=== PATIENT | male | born 1955 | race Caucasian/White ===

== ENCOUNTER 2017-07-30 10:41 | Emergency (ER) | payer BC ==
[2017-07-30 10:45] VITALS: BP 132/69; PULSE 57; RESP 20; TEMP 97.4
--- NOTE | 2017-07-30 11:25 | ED ---
Wound/Laceration HPI - General Chief Complaint: Wound/Laceration Stated Complaint: Arm Laceration Time Seen by Provider: 07/30/17 10:57 Source: patient, RN notes reviewed Mode of arrival: ambulatory Limitations: no limitations - History of Present Illness Initial Comments: This a 62-year-old male present emergency Department chief complaint of left arm laceration. Patient states his happened on Friday. Patient was cutting some plastic tubing states that he put a blade on it states that he cut his left arm. He states that he does take Plavix and aspirin. He states his been some mild losing no active bleeding. Patient is up-to-date on his tetanus. Patient has full range of motion of all digits with no paresthesias. - Related Data Home Medications Medication Instructions Recorded Confirmed Atorvastatin [Lipitor] 80 mg PO DAILY 07/13/14 07/30/17 Carvedilol [Coreg] 6.25 mg PO BID 07/13/14 07/30/17 Digoxin [Lanoxin] 125 mcg PO DAILY 07/13/14 07/30/17 Lisinopril [Zestril] 5 mg PO DAILY 07/13/14 07/30/17 Nitroglycerin Sl Tabs [Nitrostat] 0.4 mg SUBLINGUAL DIRECTED PRN 07/13/1401/07 Clopidogrel [Plavix] 75 mg PO DAILY 07/30/17 07/30/17 Previous Rx's Medication Instructions Recorded Cephalexin [Keflex] 500 mg PO Q6HR #28 cap 07/30/17 Allergies Allergy/AdvReac Type Severity Reaction Status Date / Time codeine AdvReac Severe Nausea & Verified 07/30/17 10:50 Vomiting Review of Systems ROS Statement: Those systems with pertinent positive or pertinent negative responses have been documented in the HPI. ROS Other: All systems not noted in ROS Statement are negative. Past Medical History Past Medical History: Coronary Artery Disease (CAD), Hyperlipidemia, Hypertension History of Any Multi-Drug Resistant Organisms: None Reported Past Surgical History: Heart Catheterization, Heart Catheterization With Stent, Pacemaker Additional Past Surgical History / Comment(s): defibrillator approx 4 yrs ago for EF 20% Past Anesthesia/Blood Transfusion Reactions: No Reported Reaction Date of Last Stent Placement:: approx 15 yrs ago Type of Cardiac Device: AICD Device Placement Date:: 2010 Past Psychological History: No Psychological Hx Reported Smoking Status: Former smoker Past Alcohol Use History: None Reported Past Drug Use History: None Reported - Past Family History Father Family Medical History: Myocardial Infarction ([place]) General Exam Limitations: no limitations General appearance: alert, in no apparent distress Respiratory exam: Present: normal lung sounds bilaterally. Absent: respiratory distress, wheezes, rales, rhonchi, stridor Cardiovascular Exam: Present: regular rate, normal rhythm, normal heart sounds. Absent: systolic murmur, diastolic murmur, rubs, gallop, clicks Extremities exam: Present: other (Left forearm there is a 3 cm laceration with no active bleeding, no purulent drainage no erythema patient has full strength and neurovascular intact left hand. And left arm) Course Vital Signs 07/30/17 10:43 Temperature 97.4 F L Pulse Rate 57 L Respiratory 20 Rate Blood Pressure 132/69 O2 Sat by Pulse 100 Oximetry Procedures - Procedures Initial comment: Patient's left arm laceration was cleaned, thoroughly dried, Steri-Strips applied. Medical Decision Making - Medical Decision Making 62-year-old male presented for left arm laceration. Patient's laceration is over 40s hours old. This was cleaned thoroughly, Steri-Strips applied I did explain that sutures would not be used because of possible urinary infection. This will close by secondary closure. Patiently place in 7 days of antibiotics. Patient is to have wound recheck in 48 hours return for any concerning symptoms. Disposition Clinical Impression: Laceration of skin of left forearm Disposition: HOME SELF-CARE Condition: Stable Instructions: Laceration (ED) Additional Instructions: Please return to the Emergency Department if symptoms worsen or any other concerns. Prescriptions: Cephalexin [Keflex] 500 mg PO Q6HR #28 cap Referrals: Niko Hernandez MD [Primary Care Provider] - 1-2 days Time of Disposition: 11:24
== END 2017-07-30 11:38 | disposition home or self-care (01) ==
LOC: EC 10:41
DX: S51.812A Laceration without foreign body of left forearm, initial encounter (principal); E78.5 Hyperlipidemia, unspecified; I10 Essential (primary) hypertension; I25.10 Atherosclerotic heart disease of native coronary artery without angina pectoris; Z87.891 Personal history of nicotine dependence; Z79.02 Long term (current) use of antithrombotics/antiplatelets; Z79.82 Long term (current) use of aspirin; Z79.899 Other long term (current) drug therapy; Z88.5 Allergy status to narcotic agent; W26.0XXA Contact with knife, initial encounter; Y93.89 Activity, other specified; Y92.009 Unspecified place in unspecified non-institutional (private) residence as the place of occurrence of the external cause
CPT/HCPCS: 99282

== ENCOUNTER → 2018-01-02 | Outpatient (CLI) | payer BC ==
--- NOTE | 2018-01-02 21:27 | CT ---
EXAMINATION TYPE: CT soft tissue neck w con DATE OF EXAM: 01/02/2018 HISTORY: Right sided neck mass marked by BB. COMPARISON: NONE CT DLP: 334.1 mGycm. Automated Exposure Control for Dose Reduction was Utilized. TECHNIQUE: CT scan of the neck is performed with IV Contrast, patient injected with 100 mL of Isovue M300, axial images are obtained, coronal and sagittal reformatted images are reviewed. FINDINGS: A metallic BB is placed at level of palpable abnormality right neck axial image 54. In the anterior a spect of the right parotid gland there is complex solid and cystic heterogeneous enhancing mass measu ring 3.7 cm transversely by 3.1 cm AP diameter X image 56 x 3.8 cm craniocaudal diameter sagittal marsha ge 33. Local mass effect is present with compression of the draining right internal jugular vein axia l image 56 noted. This mass has indistinct fat plane from the sternocleidomastoid mastoid muscle whic h is along its posterior lateral aspect. There are adjacent prominent but subcentimeter lymph nodes. Airway: No gross abnormality seen. Parotid/submandibular glands: No suspicious abnormality is seen. Carotid/Vascular Structures: There is mild calcified plaque in left carotid bulb extending into proxi mal internal carotid artery without significant stenosis. There is incidental note made of dominant l eft vertebral artery Osseous Structures: There is moderate to severe disc space narrowing with mild to moderate spurring C 5-C6 and C6-C7 levels. There is mild to moderate disc space narrowing with mild spurring C4-C5 level. Small collateral vessels posterior upper thoracic spine are present. Other: There is partial visualization of left-sided pacemaker. There is partial visualization of hypoechoic area right frontal lobe superiormost images likely area of old infarct correlate clinically axial image 92. Consider further workup if there is no such histo ry. Vasogenic edema from mass lesion is in differential. There are a few tiny mucous retention cysts or polyps in the inferior right maxillary sinus. IMPRESSION: 1. Complex cystic 3.8 cm mass at area of palpable abnormality right neck, differential includes prima ry cystic neoplasm, metastatic neoplasm, necrotic adenopathy, and infectious processes such as absces s. Clinical correlation advised. Imaging guided fine-needle aspiration for further workup can be perf ormed if desired. Attention to right frontal brain as detailed above.
== END | disposition home or self-care (01) ==
LOC: RADCTMAIN 16:45
PROVIDERS: ATTEND Internal Medicine
DX: L72.8 Other follicular cysts of the skin and subcutaneous tissue (principal); R22.1 Localized swelling, mass and lump, neck; Z88.0 Allergy status to penicillin; Z88.5 Allergy status to narcotic agent
CPT/HCPCS: 70491; Q9967

== ENCOUNTER → 2020-02-11 | Outpatient (CLI) | payer SELFPAY ==
[2020-02-11 13:57] LABS: Basophils % (A) 0 %; Eosinophils # (A) 0.2 k/uL (0-0.7); Eosinophils % (A) 2 %; HCT 39.7 % (39.0-53.0); HGB 12.8 gm/dL (13.0-17.5); Lymphocytes # (A) 1.9 k/uL (1.0-4.8); Lymphocytes % (A) 21 %; MCH 29.9 pg (25.0-35.0); MCHC 32.3 g/dL (31.0-37.0); MCV 92.6 fL (80.0-100.0); Mean Platelet Volume 8.2; Monocytes # (A) 0.5 k/uL (0-1.0); Monocytes % (A) 6 %; Neutrophils % (A) 68 %; Platelet Count 276 k/uL (150-450); RBC 4.28 m/uL (4.30-5.90); RDW 13.5 % (11.5-15.5); WBC 8.8 k/uL (3.8-10.6)
[2020-02-11 19:34] LABS: African American GFR (CKD) 82.4 (60.0-200.0); Albumin 4.5 g/dL (3.80-4.90); Albumin/Globulin Ratio 1.88 (1.60-3.17); BUN/Creat Ratio 17.27 Ratio (12.00-20.00); Calcium 9.8 mg/dL (8.7-10.3); Globulin 2.4 g/dL (1.6-3.3); LDL Cholesterol,Calculated 59.4 mg/dL (0.0-131.0); Non-African American GFR(CKD) 71.1 (60.0-200.0); Potassium 4.8 mmol/L (3.5-5.5); Total Protein 6.9 g/dL (6.2-8.2); VLDL Calculation 21.6 mg/dL (5.00-40.00)
[2020-02-11 21:06] LABS: Digoxin 0.8 ng/mL (0.8-2.0)
== END | disposition home or self-care (01) ==
LOC: LABWHC1 11:48
PROVIDERS: ATTEND Internal Medicine Cardiovascular Disease
DX: I25.10 Atherosclerotic heart disease of native coronary artery without angina pectoris (principal); R42 Dizziness and giddiness; I50.9 Heart failure, unspecified; E78.5 Hyperlipidemia, unspecified
CPT/HCPCS: 36415; 80053; 80061; 80162; 85025

== ENCOUNTER 2021-08-24 13:09 | Day surgery (SDC) | payer MEDICARE, OTHER ==
[2021-08-23 08:27] VITALS: BMI 21.4
--- NOTE | 2021-08-24 05:47 | HP ---
HISTORY AND PHYSICAL CHIEF COMPLAINT: Right pharyngeal mass. HISTORY OF PRESENT ILLNESS: This patient is a 66-year-old male who was recently seen in my office complaining of a growth in the back of his throat. He states that it has been there for approximately 6 to 8 months. He quit smoking over 30 years ago and has not been around any secondhand smoke or used any tobacco products since that time. He denies any bleeding, referred otalgia, pain, or dysphagia associated with the mass. At the time he was seen in my office, clinical examination revealed the patient had a 1.5 to 2 cm mass which appeared to be originating from the region of the right tonsil. Indirect laryngoscopy with a headlight mirror did not reveal any significant extension into the hypopharynx. No other suspicious lesions were noted. It was recommended the patient undergo incision of this right tonsil mass along with a right tonsillectomy under general anesthesia. PAST MEDICAL HISTORY: Reveals the patient has: ALLERGY: TO CODEINE. CURRENT MEDICATIONS: Include digoxin, Atorvastatin, and baby aspirin daily. PREVIOUS SURGERIES: Include insertion of a pacemaker/defibrillator and also cataract surgery. REVIEW OF SYSTEMS: CARDIOVASCULAR is positive for congestive heart failure. METABOLIC/ENDOCRINE system is positive for hypercholesterolemia. The remainder of the review of systems is essentially unremarkable. PHYSICAL EXAMINATION: The patient is a pleasant 66-year-old male who was alert and cooperative. HEENT examination: Patient is normocephalic. Tympanic membranes are normal. Middle ear spaces are free of any fluid or infection. Pupils equal, round, and reactive to light and accommodation. Extraocular movements within normal limits. Intranasal examination reveals moderate septal deviation with compensatory hypertrophy of the inferior turbinates. Examination of the oropharynx reveals 1.5 to 2 cm mass originating in the substance of the right tonsil. Palpation of the neck, cranial nerves 2 through 12 and remainder of the head and neck exam is essentially unremarkable and within normal limits. CHEST/CARDIOVASCULAR: Both lung irwin are clear to percussion and auscultation. The patient is in regular sinus rhythm. S1 and S2 are present without evidence of any murmurs S3s or S4s. Peripheral pulses are bilaterally symmetrical and within normal limits. ABDOMEN: There is no evidence any masses, megaly or tenderness. Abdomen: Soft. SKIN is unremarkable. MUSCULOSKELETAL/NEUROLOGICAL all within normal limits. RECTAL EXAM: The rectal exam is deferred at this time because the patient has this done on a regular basis at his family physician's office. The remainder of physical exam is essentially unremarkable. IMPRESSION: Right pharyngeal/tonsillar mass. PLAN: The patient is scheduled undergo excision of right tonsillar mass with a right tonsillectomy under general anesthesia in the a.m. Attention RNs in the pre-surgical area, I have ordered for this patient to receive 1000 mg of Ofirmev IV to be given once and once an intravenous line has established. I have also ordered for this patient to receive 2 grams of Ancef IV, to be given once an intravenous line has been established. If the pharmacy department sends a different pre-surgical prophylactic antibiotic to the pre-surgical area (other than Ancef), that order should be cancelled and the medication should be returned to the pharmacy department. Please make sure that the patient's account is credited appropriately. I have discussed the risks, benefits and alternative therapies for the above-mentioned procedure and for both sedation/analgesia as well as necessary blood product administration, if indicated, as they pertain to this patient. The patient has indicated his or her understanding and acceptance of the risks and procedures discussed. MMODL / IJN: [id number] /
[~2021-08-24 13:09] MED LIST: DEXAMETHASONE SOD PHOSPHATE 4 MG/ML 1 ML VIAL IV ONE; LACTATED RINGERS 1,000 ML IV SCH; MIDAZOLAM 2 MG/2 ML VIAL IV PRN; ONDANSETRON 4 MG/2 ML VIAL IVP ONE; Pre Op ABX Message 1 EACH MISC MISCELLANE ONE; fentaNYL (PF) 50 MCG/ML 2 ML AMP IV PRN
[2021-08-24] MEDS ORDERED: ACETAMINOPHEN IV (For NPO) 1,000 MG in EMPTY BAG 1 BAG IVPB ONE (14:45)
[2021-08-24] MEDS ORDERED: DEXAMETHASONE SOD PHOSPHATE 10 MG/ML 1 ML VIAL ONE (15:05)
[2021-08-24] MEDS ORDERED: PROPOFOL 10 MG/ML 20 ML VIAL IV ONE (15:05)
[2021-08-24] MEDS ORDERED: LIDOCAINE 1% INJ 10MG/ML (20 ML MDV) ONE (15:05)
[2021-08-24] MEDS ORDERED: NEOSTIGMINE 1 MG/ML 10 ML VIAL ONE (15:05)
[2021-08-24] MEDS ORDERED: MIDAZOLAM 2 MG/2 ML VIAL ONE (15:05)
[2021-08-24] MEDS ORDERED: fentaNYL (PF) 50 MCG/ML 2 ML AMP ONE (15:05)
[2021-08-24] MEDS ORDERED: SUCCINYLCHOLINE CHLORIDE 100 MG/5 ML SYR IV ONE (15:05)
[2021-08-24] MEDS ORDERED: ETOMIDATE 2 MG/ML 10 ML VIAL ONE (15:05)
[2021-08-24] MEDS ORDERED: ROCURONIUM 10 MG/ML (5 ML VIAL) IV ONE (15:05)
[2021-08-24] MEDS ORDERED: GLYCOPYRROLATE 0.2 MG/ML 2 ML VIAL ONE (15:05)
[2021-08-24] MEDS ORDERED: BUPIVACAINE (PF) 0.5% 30 ML VIAL MISCELLANE ONE ×2 (15:38→16:02)
[2021-08-24 16:34] VITALS: TEMP 97.2
[2021-08-24 17:18] VITALS: RESP 20
[2021-08-24] MEDS ORDERED: traMADol 50 MG TAB ONE (17:26)
[2021-08-24] MEDS ORDERED: ONDANSETRON 4 MG/2 ML VIAL ONE (17:26)
[2021-08-24] MEDS ORDERED: traMADol 50 MG TAB PO ONE (17:29)
[2021-08-24] MEDS ORDERED: ONDANSETRON 4 MG/2 ML VIAL IVP ONE (17:30)
[2021-08-24 18:23] VITALS: BP 100/64; PULSE 69
--- NOTE | 2021-08-26 19:52 | OP ---
OPERATIVE REPORT DATE OF SURGERY: 08/24/2021 PREOPERATIVE DIAGNOSIS: Right tonsillar mass. POSTOPERATIVE DIAGNOSIS: Right tonsillar mass, final pathology pending. ANESTHESIA: General. OPERATIVE PROCEDURE: Excision of right tonsillar mass. SURGEON: Dr. Bermudez. COMPLICATIONS: None. ESTIMATED BLOOD LOSS: Less than 75 mL. Size of mass approximately 1 x 3 cm. Operating time approximately 1 hour 15 minutes. PROCEDURE DESCRIPTION: The patient was placed on the operating table in supine position. After uneventful induction and endotracheal intubation, satisfactory general anesthesia was obtained. Next the patient was draped in the usual and customary fashion. Following this, a #3 Raji-Jian mouth gag was introduced into the oropharynx and expanded and subsequently was suspended on a Deng stand. Next a red rubber catheter was inserted into the patient's left naris and brought out through the oropharynx and clamped. Inspection by elevating the soft palate revealed that this was a very large tonsillar mass, approximately 1 x 3 cm. It appeared to be quite ragged, lobulated, and it also appeared to have a necrotic center. There was quite a bit of tonsillar debris noted within this mass. The mass was grasped with a pair of tonsillar forceps and pulled medially. Next, using the sickle knife an incision was made just lateral to the anterior pillar beginning superiorly and working down inferiorly. A pair of scissors was used to finish the incision. A similar incision was carried out posteriorly, beginning anteriorly and working inferiorly. Next, using a combination of sharp and blunt dissection with the Germán dissector and suction cautery, the mass was excised completely with some difficulty. The mass had a tendency to shred at times. There was necrotic debris noted in the center of this mass. This mass is highly suspicious for a malignancy. Next, using a pair of a tonsillectomy snares, the mass was excised subtotally. After excising the main portion of the mass, it was noted that there was some residual tissue left. This was subsequently excised using blunt and sharp dissection and also using the suction cautery. Having done this, this completely cleaned out the entire tonsillar fossa. Hemostasis was obtained by electrocautery. Approximately 15 mL of 0.5% Marcaine without epinephrine was infiltrated to provide some postoperative anesthesia. The patient was given 10 mg of Decadron to reduce postoperative swelling. At this point, the procedure was terminated. The specimen was sent to Pathology in formalin for permanent sectioning. Estimated blood loss was less than 75 mL. The patient tolerated the procedure well and was returned to the recovery room in satisfactory condition. Final pathology is pending. Again, this mass is highly suspicious for a malignancy. MMODL / IJN: [id number] /
== END 2021-08-24 18:24 | disposition home or self-care (01) ==
LOC: OR 13:09
PROVIDERS: ATTEND Otolaryngology
DX: C11.1 Malignant neoplasm of posterior wall of nasopharynx (principal); Z98.49 Cataract extraction status, unspecified eye; I50.9 Heart failure, unspecified; E78.00 Pure hypercholesterolemia, unspecified; Z95.5 Presence of coronary angioplasty implant and graft; Z95.810 Presence of automatic (implantable) cardiac defibrillator; Z95.0 Presence of cardiac pacemaker; Z79.82 Long term (current) use of aspirin; Z79.899 Other long term (current) drug therapy; Z79.1 Long term (current) use of non-steroidal anti-inflammatories (NSAID); Z88.5 Allergy status to narcotic agent
CPT/HCPCS: 88305; 88342; 88341; 42808; J2250; J1100 ×2; J2710; J2405; J2001; J3010; J0131; J0330; J2704

== ENCOUNTER → 2021-08-31 | Outpatient (CLI) | payer MEDICARE, OTHER ==
--- NOTE | 2021-08-31 12:34 | CT ---
EXAMINATION TYPE: CT soft tissue neck w con DATE OF EXAM: 08/31/2021 11:41 AM COMPARISON: CT dated 01/04/2018 HISTORY: Carcinoma of tonsils. CT DLP: 528 mGycm Automated exposure control for dose reduction was used. CONTRAST: CT scan of the neck is performed following with IV Contrast, patient injected with 80ml mL of Isovue 300. Axial images are obtained, coronal and sagittal reformatted images are reviewed. FINDINGS: The previously seen large hyperenhancing right palatine tonsil is not appreciated today with no measu rable disease or mucosal thickening identified. Unremarkable nasopharynx, remainder of the oropharynx , hypopharynx, larynx and visualized portion of the trachea and esophagus. Soft tissue lesion with marginal calcification posteriorly is seen in the right side of the upper nec k between the sternocleidomastoid muscle and right sublingual salivary gland measuring 15 x 19 mm, co rresponding to the location of the previously seen multiple cystic lesion at that location, possibly representing residual/recurrent metastatic lymph node. Small cystic area is seen laterally and inferi shereen measuring 10 mm. Other enlarged right upper cervical lymph nodes with marginal calcifications seen posteriorly deep to the sternocleidomastoid muscle (level 2 group) measuring up to 13 mm. These are suspicious for metas tatic lymph nodes, not appreciated on the previous CT scan. Other smaller more inferior right cervica l lymph nodes with calcifications are seen. No pathologically enlarged left cervical lymph nodes. Unremarkable thyroid gland. Symmetrical unremarkable parotid and submandibular salivary glands. Paten t major mediastinal vessels. Left upper chest wall pacemaker. Subcentimeter superior mediastinal lymp h nodes. Stable right intracranial frontal lobe area of encephalomalacia. Degenerative changes of the cervical spine. No aggressive bone lesion. 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 Recommend further PET scan assessment.
== END | disposition home or self-care (01) ==
LOC: RADCTMAIN 10:44
PROVIDERS: ATTEND Otolaryngology
DX: C09.9 Malignant neoplasm of tonsil, unspecified (principal); M79.9 Soft tissue disorder, unspecified
CPT/HCPCS: 82565; 84520; 70491; 36415; Q9967

== ENCOUNTER 2021-09-07 09:52 | Day surgery (SDC) | payer MEDICARE, OTHER ==
[2021-09-04 14:50] VITALS: BMI 21.4
--- NOTE | 2021-09-06 21:29 | HP ---
HISTORY AND PHYSICAL Squamous cell carcinoma of the right tonsil. HISTORY OF PRESENT ILLNESS: The patient is a 66-year-old male who recently underwent surgery for a right tonsillar mass. The total tonsil/tonsillar mass was excised and sent to Pathology. The final pathology came back invasive squamous cell carcinoma. The patient is currently scheduled to undergo chemotherapy and radiation therapy. He was brought back to surgery at this time for a triple endoscopy to evaluate for possible secondary synchronous primary lesion elsewhere in the aerodigestive tract. He will undergo a suspension microlaryngoscopy, rigid esophagoscopy and rigid bronchoscopy under general anesthesia. Past medical history reveals that he has an ALLERGY TO CODEINE. Current medications include digoxin, atorvastatin and a baby aspirin daily. Previous surgeries include insertion of a pacemaker/defibrillator and also cataract surgery. REVIEW OF SYSTEMS: Cardiovascular system is positive for congestive heart failure. Metabolic/endocrine system is positive for hypercholesterolemia. The remainder of the review of systems is essentially unremarkable. PHYSICAL EXAMINATION: This patient is a very pleasant 66-year-old male who is alert, cooperative and well oriented to time and place. HEENT examination: Patient is normocephalic. Tympanic membranes are normal. Middle ear space is free of any fluid or infection. Pupils are equal, round and reactive to light and accommodation. Intranasal examination reveals moderate to severe septal deviation with compensatory hypertrophy of inferior turbinates. Examination of oropharynx reveals the right tonsillar fossa is healing quite nicely after excision of the right tonsillar mass. Palpation of the neck reveals the patient has a palpable lymph node approximately less than 2 cm in diameter located on the right anterior cervical chain. This lymph node is nontender, mobile, nonfluctuant and well circumscribed. No other neck masses are noted at this time. The remainder of the head and neck exam, including cranial nerves 2 through 12, is all within normal limits. Chest/cardiovascular: Both lung irwin are clear to percussion and auscultation. Lung sounds are somewhat distant. The patient is in regular sinus rhythm. S1 and S2 are present without evidence of any murmurs, S3s or S4s. Peripheral pulses are bilaterally symmetrical and within normal limits. Abdomen: There is no evidence any masses, megaly or tenderness. The abdomen is soft. Skin is unremarkable. Musculoskeletal and neurological are within normal limits. Rectal examination is deferred at this time because the patient has this done on a regular basis at his family physician's office. The remainder of physical exam is essentially unremarkable. IMPRESSION: Squamous cell carcinoma of the right tonsil. PLAN: The patient is scheduled undergo triple endoscopy involving a suspension microlaryngoscopy, rigid esophagoscopy and rigid bronchoscopy under general anesthesia in the a.m. Attention RNs in the pre-surgical area: I have not ordered any pre-surgical prophylactic antibiotics for this patient. If the pharmacy department sends any pre- surgical prophylactic antibiotics to the pre-surgical area for this patient, please cancel that order and return it to the pharmacy department. Also make sure that the patient's account is credited appropriately. I have discussed the risks, benefits and alternative therapies for the above-mentioned procedure and for both sedation/analgesia as well as necessary blood product administration, if indicated, as they pertain to this patient. The patient has indicated his or her understanding and acceptance of the risks and procedures discussed. SUSAN / JEAN-CLAUDEN: [id number] /
[2021-09-07] MEDS ORDERED: DEXAMETHASONE SOD PHOSPHATE 10 MG/ML 1 ML VIAL ONE (11:08)
[2021-09-07] MEDS ORDERED: LIDOCAINE 1% INJ 10MG/ML (20 ML MDV) ONE (11:08)
[2021-09-07] MEDS ORDERED: MIDAZOLAM 2 MG/2 ML VIAL ONE (11:08)
[2021-09-07] MEDS ORDERED: PROPOFOL 10 MG/ML 20 ML VIAL IV ONE (11:08)
[2021-09-07] MEDS ORDERED: fentaNYL (PF) 50 MCG/ML 2 ML AMP ONE (11:08)
[2021-09-07] MEDS ORDERED: SUCCINYLCHOLINE CHLORIDE 100 MG/5 ML SYR IV ONE (11:08)
[2021-09-07] MEDS ORDERED: diphenhydrAMINE 50 MG/ML 1 ML VIAL ONE (11:08)
[2021-09-07 12:06] VITALS: TEMP 97
[2021-09-07 12:17] VITALS: RESP 16
[2021-09-07 13:27] VITALS: BP 107/73; PULSE 53
--- NOTE | 2021-09-09 19:17 | OP ---
OPERATIVE REPORT DATE OF SURGERY: 09/07/2021. 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 ANESTHESIA: General operative. PROCEDURE: 1. Triple endoscopy: 2. Suspension microlaryngoscopy. 3. Rigid bronchoscopy. 4. Rigid esophagoscopy. OPERATING SURGEON: Dr. Bermudez. COMPLICATIONS: None. ESTIMATED BLOOD LOSS: Zero. OPERATIVE PROCEDURE: The patient was placed on the operating table in supine position. After uneventful induction and endotracheal intubation, satisfactory general anesthesia was obtained. Next, the patient was draped in usual customary fashion. Initial attention was directed towards the suspension microlaryngoscopy portion of procedure. Therefore, the laryngoscope was introduced into the patient's oropharynx. In the right and left piriform sinuses, base of tongue, valleculae and epiglottis were inspected and found to be free of any suspicious lesions. Next the tip of the laryngoscope was introduced into the laryngeal introitus and the Lewy apparatus was attached to the handle of the laryngoscope. The laryngoscope was then suspended on the patient's chest. Next using the Zeiss operating microscope and under magnified visualization, 1 could see that both true vocal cords appeared to be normal and there were no suspicious laryngeal lesions noted. At this point, this portion of procedure was terminated and we proceeded performing the rigid esophagoscopy. [facility] was introduced into the patient's oropharynx and subsequently was presented at the esophageal introitus. Next, using an atraumatic technique, the rigid scope was advanced through the esophageal introitus into the esophagus. Next, again in an atraumatic fashion, the esophagoscope was advanced down the patient's esophagus down to the level of the junction of the esophagus and stomach. No suspicious lesion were noted and the rigid esophagoscope was removed in an atraumatic fashion. At no time was any bleeding of the esophagus or tears noted. Finally, attention was directed towards rigid bronchoscopy and this was performed by introducing a sliding laryngoscope into the oropharynx and presenting at the laryngeal introitus. The tip of the sliding laryngoscope was introduced to the laryngeal introitus and the larynx was elevated. The rigid bronchoscope was then introduced into the sliding laryngoscope. It was slightly advanced beyond the true vocal cords. At this point, in coordination with the anesthesia department, the cuff on the endotracheal tube was deflated. As Anesthesia Department gradually withdrew the endotracheal tube, the bronchoscope was further advanced until the endotracheal tube was completely removed. At this point, the anesthesia department attached their anesthesia circuit to the side-arm of the rigid bronchoscope, thus allowing them to ventilate the patient appropriately. The rigid bronchoscope was passed down the right mainstem bronchus and subsequently the left mainstem bronchus and at no time were any suspicious lesions or masses noted. This was done in an atraumatic fashion. The rigid bronchoscope was subsequently withdrawn and the Anesthesia Department was able to ventilate the patient using a mask only and it did not require that the patient be reintubated. The patient was given 10 mg of Decadron intraoperatively to reduce any postoperative laryngeal edema. At this point, all procedures were terminated. There were no biopsies performed. All 3 examinations, the suspension microlaryngoscopy, rigid bronchoscopy, and rigid esophagoscopy, were negative for any suspicious lesions. At this point, the procedure was terminated. There were no intraoperative complications. The patient tolerated the procedure well and was returned to the recovery room in satisfactory condition. MMODL / IJN: [id number] /
== END 2021-09-07 14:04 | disposition home or self-care (01) ==
LOC: OR 09:52
PROVIDERS: ATTEND Otolaryngology
DX: C09.9 Malignant neoplasm of tonsil, unspecified (principal); C79.89 Secondary malignant neoplasm of other specified sites; I50.9 Heart failure, unspecified; E78.00 Pure hypercholesterolemia, unspecified; I25.10 Atherosclerotic heart disease of native coronary artery without angina pectoris; I25.2 Old myocardial infarction; Z95.810 Presence of automatic (implantable) cardiac defibrillator; Z87.891 Personal history of nicotine dependence; Z79.899 Other long term (current) drug therapy; Z79.82 Long term (current) use of aspirin; Z88.5 Allergy status to narcotic agent; Z98.49 Cataract extraction status, unspecified eye
CPT/HCPCS: 31526; J2250; J1100 ×2; J2405; J2001; J3010; J0330; J2704

== ENCOUNTER → 2021-09-14 | Outpatient (CLI) | payer MEDICARE, OTHER ==
--- NOTE | 2021-09-17 15:34 | PE ---
Nuclear medicine PET/CT HISTORY: CO 9.0, initial Patient received 10 mCi F-18 FDG intravenously and delayed whole-body scanning was performed. Correlation to CT neck 08/31/2021 Average mediastinal uptake SUV is 2.4, average liver uptake SUV is 3. Head and neck: There is hypermetabolic uptake associated with patient's right-sided neck nodes along nonenlarged anterior and posterior cervical chains with SUV ranging 4.1to 8.1, along the eustachian t ube on the right there is also hypermetabolic uptake likely corresponding to abnormal soft tissue, CARROLL V 9.9. Supraclavicular node on the right is also showing abnormal uptake but is not enlarged, SUV 2.4 . Chest shows no hypermetabolic uptake along the mediastinum, hilum, axillary regions. There are dense coronary artery calcifications. No pleural or pericardial effusion. No evident lung mass. ABDOMEN: There is no evident liver mass or retroperitoneal adenopathy. No ascites or adrenal mass. Th ere is some abdominal adenopathy along the mesentery with some uptake, SUV is 3.4. No pelvic adenopat hy. Osseous structures show no suspicious uptake. IMPRESSION: Multiple hypermetabolic nodes, consider lymphoma, metastatic disease
== END | disposition home or self-care (01) ==
LOC: RADPETMAIN 09:33
PROVIDERS: ATTEND Internal Medicine Hematology & Oncology
DX: C09.0 Malignant neoplasm of tonsillar fossa (principal)
CPT/HCPCS: 78815; A9552

== ENCOUNTER → 2022-01-18 | Outpatient (CLI) | payer MEDICARE, OTHER ==
--- NOTE | 2022-01-21 11:45 | PE ---
Nuclear medicine PET/CT HISTORY: CO9.0, head and neck cancer, subsequent Patient received 12.6 mCi F-18 FDG intravenously and delayed scanning was performed from the skull ba se to the mid thighs. Localization and attenuation correction CT scan was performed. Small field-of-v iew imaging obtained through the head and neck. Correlation to prior nuclear medicine PET/CT 09/14/2021 Average mediastinal uptake SUV, average liver uptake SUV. Head and neck: The previously identified abnormal nodes without hypermetabolic uptake seen on prior e xam are no longer seen. There is some asymmetric soft tissue seen at the level of the vallecula incre ased on the left as compared to the right including the region of the palatine tonsil which is though t to be improved, uptake is not evident. No supraclavicular adenopathy. CHEST: There is no mediastinal, axillary, or hilar adenopathy. Coronary artery calcifications are pre sent. There is a generator in the left pectoral region, lead is coursing into the right ventricle. Sm all amount of pericardial fluid is present. There is no evident lung mass or pleural effusion. No verónica picious uptake. ABDOMEN: No evident adrenal mass or liver mass. Some low dense foci within the left lobe of the liver shows no associated uptake, stable appearance compared to prior exam. No evident ascites. No retrope ritoneal adenopathy. Aorta shows atheromatous change. Prostate is enlarged and shows associated calci fication. No pelvic adenopathy. Osseous structures show no suspicious uptake. No lytic or blastic lesion. IMPRESSION: There is improvement compared to prior PET/CT as described
== END | disposition home or self-care (01) ==
LOC: RADPETMAIN 07:08
PROVIDERS: ATTEND Internal Medicine Hematology & Oncology
DX: C09.0 Malignant neoplasm of tonsillar fossa (principal)
CPT/HCPCS: 78815; A9552

== ENCOUNTER → 2023-06-03 | Outpatient (CLI) | payer MEDICARE, OTHER ==
[2023-06-03 15:42] LABS: ALT 80 U/L (8-49); AST 74 U/L (13-35); Albumin/Globulin Ratio 2.17 Ratio (1.60-3.17); Alkaline Phosphatase 101 U/L (41-126); Calcium 10.2 mg/dL (8.7-10.3); Carbon Dioxide 26.3 mmol/L (21.6-31.8); Chloride 100 mmol/L (96-109); Chol/HDL Ratio 2.88 Ratio; Globulin 2.3 g/dL (1.6-3.3); Glucose 102 mg/dL (70-110); Potassium 4.2 mmol/L (3.5-5.5); Sodium 139 mmol/L (135-145); Total Bilirubin 1.3 mg/dL (0.3-1.2); Total Protein 7.3 g/dL (6.2-8.2); VLDL Calculation 16.44 mg/dL (5.00-40.00)
== END | disposition home or self-care (01) ==
LOC: LABWHC1 10:02
PROVIDERS: ATTEND Nurse Practitioner
DX: I25.10 Atherosclerotic heart disease of native coronary artery without angina pectoris (principal); E78.5 Hyperlipidemia, unspecified
CPT/HCPCS: 36415; 80053; 80061

== ENCOUNTER → 2023-06-06 | Outpatient (CLI) | payer MEDICARE, OTHER ==
[2023-06-06 10:06] LABS: African American GFR (CKD) 50 (>60 ml/min/1.73 sqM); Blood Urea Nitrogen 28 mg/dL (9-20); Non-African American GFR(CKD) 43 (>60 ml/min/1.73 sqM)
--- NOTE | 2023-06-06 19:35 | CT ---
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 Coronal and sagittal reconstructions performed. CT DLP: 548.4 mGycm Automated exposure control for dose reduction was used. FINDINGS: Neck: Visualized intracranial structures, orbits and globes, and mastoid air cells appear clear. Mildly lobulated mucosal thickening right ethmoid air cells and a small mucosal retention cyst floor right maxillary sinus measuring 8 mm. Nasopharynx is clear. The previous effacement of the left vallecular space as improved. Epiglottis and prevertebral soft ti ssues appear satisfactory. Circumferential soft tissue narrowing at the level of the aryepiglottic folds with effacement of the piriform sinuses is noted. There is circumferential narrowing may be on the basis of closed vocal fol ds. Direct visualization recommended to exclude abnormal soft tissue here. Reference axial image 50. Subglottic structures appear satisfactory. Thyroid gland is small. Mild atherosclerotic calcifications of the carotid bifurcations. Submandibular glands are slightly atrophic. Parotid glands are mildly atrophic. No cervical lymphadenopathy identified. Bones: Moderate spondylitic change mid to lower cervical spine. CHEST: The heart is normal size with a small anterior pericardial effusion measuring 6 mm thick. Left anteri or chest wall pacemaker generator with right ventricular lead. Aorta normal caliber with mild arthritic arch calcifications and conventional arch vessel branching a natomy. Previous scattered mediastinal lymph nodes have decreased in size. No thoracic lymphadenopath y by CT size criteria. They are probably reactive/post inflammatory. Mild to moderate upper lung emphysematous change. No consolidation or pleural effusion. A tiny 2 mm right middle lobe pulmonary nodule, axial image 39 is unchanged. No consolidation or pleu ral effusion. There is mild circumferential wall thickening of the distal third esophagus. A few scattered hepatic cysts measuring up to 2.0 cm are redemonstrated. Unchanged 1.3 cm nodularity medial to the upper pole of the right kidney, probably an exophytic cyst which remains unchanged. Mo derate atherosclerotic calcifications abdominal aorta. Bones: Some nonspecific ventral epidural calcifications opposite the T9 and T10 level remains unchang ed. No osseous destructive process. IMPRESSION: NECK: 1. THE PREVIOUS SOFT TISSUE EFFACEMENT OF THE LEFT VALLECULAR SPACE HAS IMPROVED, LIKELY IMPROVING PO ST THERAPY SWELLING. 2. HOWEVER, THERE IS CIRCUMFERENTIAL SOFT TISSUE NARROWING OF THE AIRWAY AT THE LEVEL OF THE ARYEPIGL OTTIC FOLDS NOW DEMONSTRATED. THIS MAY BE ON THE BASIS OF CLOSED VOCAL FOLD POSITIONING. RECOMMEND DI RECT VISUALIZATION TO EXCLUDE ABNORMAL SOFT TISSUE HERE. REFER TO AXIAL IMAGE 50. 3. NO ABNORMAL CERVICAL LYMPHADENOPATHY. CHEST: 4. COPD WITH MILD TO MODERATE EMPHYSEMA. NO EVIDENCE FOR METASTATIC DISEASE IN THE CHEST. 5. MILD CIRCUMFERENTIAL WALL THICKENING OF THE DISTAL THIRD ESOPHAGUS. CORRELATE FOR ANY SYMPTOMS OF ESOPHAGITIS.
== END | disposition home or self-care (01) ==
LOC: RADCTMAIN 09:27
PROVIDERS: ATTEND Internal Medicine Hematology & Oncology
DX: J44.9 Chronic obstructive pulmonary disease, unspecified (principal); J43.9 Emphysema, unspecified; M79.89 Other specified soft tissue disorders; K22.89 Other specified disease of esophagus; C09.0 Malignant neoplasm of tonsillar fossa; C18.2 Malignant neoplasm of ascending colon; F32.A Depression, unspecified; I42.9 Cardiomyopathy, unspecified; I25.2 Old myocardial infarction; D50.0 Iron deficiency anemia secondary to blood loss (chronic); Z71.3 Dietary counseling and surveillance
CPT/HCPCS: 82565; 84520; 70491; 71260; 36415; Q9967

== ENCOUNTER → 2023-12-05 | Outpatient (CLI) | payer MEDICARE, OTHER ==
[2023-12-05 10:22] LABS: African American GFR (CKD) 65 (>60 ml/min/1.73 sqM); Blood Urea Nitrogen 20 mg/dL (9-20); Non-African American GFR(CKD) 56 (>60 ml/min/1.73 sqM)
--- NOTE | 2023-12-08 16:18 | CT ---
EXAMINATION TYPE: CT soft tissue neck wo/w con CT DLP: 873 mGycm, Automated exposure control for dose reduction was used. DATE OF EXAM: 12/05/2023 10:40 AM COMPARISON: 06/06/2023. CLINICAL INDICATION:Male, 68 years old with history of C09.0 TONSIL CA; [facility], f/u tonsil ca TECHNIQUE: Standard enhanced CT of the neck. Axial sections with coronal and sagittal reformats were obtained. Contrast used:100 mL of Isovue 300 without and with IV Contrast, (None if empty) Oral contrast used: (None if empty) FINDINGS: Brain: Visualized portions are grossly unremarkable. Orbits: Unremarkable Sinuses: Grossly unremarkable. Spaces of the neck: Clear and symmetric. Musculoskeletal: No acute osseous pathology. Lymph nodes: Multiple nonenlarged lymph nodes are seen along both anterior chains of the neck. Lymp h nodes which are FDG avid on 09/14/2021 PET/CT are not as well appreciated. There are some calcified lymph nodes which could represent posttreatment change. Vascular structures: Visualized major arteries are patent without evidence of aneurysm. No evidence f or occlusion. Thoracic Inlet/airway: Airway is patent. The lung apices are clear. Soft tissues/Thyroid: Thyroid and remainder of the soft tissues are unremarkable. Other: Left chest wall cardiac conduction device partially visualized. Mild centrilobular emphysema c hanges. No suspicious nodules. IMPRESSION No evidence for lymphadenopathy. Specifically no greater than 1.0 cm in short axis lymph nodes. Few p artially calcified lymph nodes likely representing posttreatment changes when comparing to prior exam . Consider follow-up PET/CT to ensure is no metabolically active smaller lymph nodes.
== END | disposition home or self-care (01) ==
LOC: RADCTMAIN 09:36
PROVIDERS: ATTEND Internal Medicine Hematology & Oncology
DX: C09.0 Malignant neoplasm of tonsillar fossa (principal); I89.8 Other specified noninfective disorders of lymphatic vessels and lymph nodes; F32.A Depression, unspecified; I42.9 Cardiomyopathy, unspecified; I25.2 Old myocardial infarction
CPT/HCPCS: 82565; 84520; 70492; 36415; Q9967

== ENCOUNTER → 2024-06-21 | Outpatient (CLI) | payer MEDICARE, OTHER ==
[2024-06-21 12:53] LABS: African American GFR (CKD) 54 (>60 ml/min/1.73 sqM); Blood Urea Nitrogen 22 mg/dL (9-20); Non-African American GFR(CKD) 47 (>60 ml/min/1.73 sqM)
--- NOTE | 2024-06-21 13:49 | CT ---
EXAMINATION TYPE: CT neck chest w con CT DLP: 550.4 mGycm, Automated exposure control for dose reduction was used. DATE OF EXAM: 06/21/2024 1:30 PM COMPARISON: CT neck 12/05/2023, 08/31/2021, 01/02/2018, CT neck chest 06/06/2023, CT chest 11/09/2022, PE T/CT 01/18/2022, 09/14/2021. 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 Axial sections with coronal and sagittal refo rmats were obtained. Contrast used:80cc mL of Isovue 300 with IV Contrast, (none if empty) Oral contrast used: (none if empty) FINDINGS: BRAIN: Visualized portions are grossly unremarkable. ORBITS: Unremarkable SINUSES: Stable tiny subcentimeter mucous retention cysts along the floor the right maxillary sinus. The remaining paranasal sinuses are clear. SPACES OF THE NECK: The nasopharynx is clear. Similar mild prominence within the left piriform sinus. Similar cervical vertebral soft tissue narrowing of the airway at the level of the aryepiglottic fol ds. The epiglottis and prevertebral soft tissues appear satisfactory. Subglottic structures appear sa tisfactory. The submandibular and parotid glands are slightly atrophic without focal lesion. MUSCULOSKELETAL: No acute osseous pathology. Moderate spondylitic change of these mid to lower cervic al spine. LYMPH NODES: No pathologically enlarged lymph nodes identified. Calcified right jugular lymph node r edemonstrated.. VASCULAR STRUCTURES: Patent with mild atherosclerotic plaque of the internal carotid arteries at the bifurcation. THORACIC INLET/AIRWAY: Airway is patent. The lung apices are clear. SOFT TISSUES/THYROID: Thyroid and remainder of the soft tissues are unremarkable. OTHER: none. LUNGS/ PLEURA: No pleural effusion, pneumothorax, focal consolidation. Minimal right lower lobe linea r atelectasis in stable right lower lobe 5 mm pulmonary nodule (series 6, image 58). New anterior le ft upper lobe 7 mm pulmonary nodule (series 6, image 21). Mild centrilobular emphysematous changes. AIRWAY: Patent and unremarkable. HEART: Size within normal limits.Left chest wall single lead cardiac pacemaking device with lead term inating in the intraventricular septum. Small anterior pericardial effusion. MEDIASTINUM: No evidence of adenopathy. Similar circumferential wall thickening to distal third esoph roberto. VASCULATURE: No aortic aneurysm. Mild atherosclerotic calcification aortic arch and its branches. MUSCULOSKELETAL: Mild disc degeneration changes are present throughout the thoracolumbar spine. No ac morgan osseous abnormality. No aggressive osseous lesion. Similar nonspecific ventral epidural calcifica tions opposite the T9-T10 levels. SOFT TISSUES/LYMPH NODES: Mild bilateral gynecomastia. LOWER NECK: No significant findings. UPPER ABDOMEN: Stable few hepatic cysts measuring up to 2.0 cm. Stable 1.2 cm nodularity medial to th e upper pole of the right kidney, probable exophytic cyst. IMPRESSION: 1. Similar soft tissue narrowing of the airway at the level of the aryepiglottic folds. May relate t o closed vocal cord positioning. Consider direct visualization. 2. No abnormal lymphadenopathy within the neck or chest. 3. New nonspecific left upper lobe 7 mm pulmonary nodule. Stable right lower lobe 5 mm pulmonary nod ule. Recommend follow-up CT chest in 3 months. [facility], , 06/21/2024 1:47 PM
== END | disposition home or self-care (01) ==
LOC: RADCTMAIN 11:58
PROVIDERS: ATTEND Internal Medicine Hematology & Oncology
DX: C09.0 Malignant neoplasm of tonsillar fossa (principal); F32.A Depression, unspecified; I42.9 Cardiomyopathy, unspecified; I25.2 Old myocardial infarction; R91.1 Solitary pulmonary nodule
CPT/HCPCS: 82565; 84520; 70491; 71260; 36415; Q9967

== ENCOUNTER → 2024-11-25 | Outpatient (CLI) | payer MEDICARE ==
--- NOTE | 2024-11-29 07:57 | PE ---
EXAMINATION TYPE: PET CT fusion skull to thigh DATE OF EXAM: 11/25/2024 COMPARISON: CT chest 11/12/2024 Prior PET/CT: 01/18/2022 CLINICAL INDICATION: Male, 69 years old with history of C09.0 TONSIL CANCER, TECHNIQUE: Following the intravenous administration of 9.88 mCi of F-18 FDG, whole body images are p erformed PET CT fusion skull to thigh. Images are reviewed on the computer in the coronal, axial, an d sagittal planes. Reconstructed rotating images are created on independent workstation and reviewed on the computer. A localization and attenuation correction CT is performed in conjunction with the PET scan. DLP: 594.3 mGycm SCAN: Subsequent Blood glucose: 106 mg/dL Average Mediastinum SUV: 1.62 Average Liver SUV: 2.23 FINDINGS: Head and neck: There is subtle increased signal within the left tonsillar pillar, example image 50, S UV 4.71. Some underlying residual may remain present. This area appears diminished from comparison. NECK: No abnormal uptake THORAX: No abnormal uptake ABDOMEN: No abnormal uptake. Intense uptake anterolateral to the vertebral body within the lower abdo men does not have corresponding CT abnormality. Finding may be related to the ureter. SUV 5.02, image 171. PELVIS: No abnormal uptake OSSEOUS STRUCTURES: No abnormal uptake LOCALIZATION CT: Stable appearance of soft tissue within the left tonsillar region. COMPARISON: Improved radiotracer within the soft tissues of the left neck IMPRESSION: 1. There is mild uptake within the left tonsillar region. This area is diminished in intensity compar ed to prior study. 2. There is a solitary area of increased uptake within abdomen. No underlying corresponding CT abnorm ality identified. This could be related to ureter. Monitoring however is recommended. [facility], , 11/29/2024 7:55 AM
== END | disposition home or self-care (01) ==
LOC: RADPETMAIN 09:49
PROVIDERS: ATTEND Internal Medicine Hematology & Oncology
DX: C09.0 Malignant neoplasm of tonsillar fossa (principal); R91.1 Solitary pulmonary nodule
CPT/HCPCS: 78815; A9552

== ENCOUNTER 2024-12-14 23:41 | Emergency (ER) | payer MEDICARE ==
[2024-12-14 23:56] VITALS: RESP 18
--- NOTE | 2024-12-15 02:35 | ED ---
General Adult HPI - General Chief complaint: Extremity Injury, Lower Stated complaint: R Ankle Injury Time Seen by Provider: 12/15/24 01:23 Source: patient, RN notes reviewed Mode of arrival: ambulatory Limitations: no limitations - History of Present Illness Initial comments: 69-year-old male presents to the emergency department for evaluation of right ankle pain. Patient notes that he twisted his ankle 2 days ago. He reports he has pain in the medial and lateral ankle. He notes that it is painful with ambulation. Denies any numbness or tingling. Denies any other injury. - Related Data Home Medications Medication Instructions Recorded Confirmed Atorvastatin [Lipitor] 80 mg PO DAILY 07/13/14 09/07/21 Digoxin [Lanoxin] 125 mcg PO DAILY 07/13/14 09/07/21 Nitroglycerin Sl Tabs [Nitrostat] 0.4 mg SUBLINGUAL DIRECTED PRN 07/13/14 09/07/21 Aspirin 325 mg PO DAILY 08/23/21 09/07/21 Allergies Allergy/AdvReac Type Severity Reaction Status Date / Time codeine AdvReac Severe Nausea & Verified 12/14/24 23:52 Vomiting Review of Systems ROS Statement: Those systems with pertinent positive or pertinent negative responses have been documented in the HPI. ROS Other: All systems not noted in ROS Statement are negative. Past Medical History Past Medical History: Myocardial Infarction ([place]) Additional Past Medical History / Comment(s): [place] x 3, Last Myocardial Infarction Date:: unknown History of Any Multi-Drug Resistant Organisms: None Reported Past Surgical History: AICD, Heart Catheterization, Heart Catheterization With Stent Additional Past Surgical History / Comment(s): defibrillator approx 4 yrs ago for EF 20%, two cardiac stents, tera cataracts Past Anesthesia/Blood Transfusion Reactions: No Reported Reaction Date of Last Stent Placement:: approx 15 yrs ago Type of Cardiac Device: AICD Device Placement Date:: 2010 Past Psychological History: No Psychological Hx Reported Smoking Status: Former smoker Past Alcohol Use History: None Reported Past Drug Use History: Marijuana - Past Family History Mother Family Medical History: No Reported History General Exam Limitations: no limitations General appearance: alert, in no apparent distress Head exam: Present: atraumatic, normocephalic, normal inspection Extremities exam: Present: full ROM, tenderness (Tenderness to palpation over the medial lateral right ankle), normal capillary refill, other (DP and PT pulses 2+). Absent: pedal edema, joint swelling, calf tenderness Neurological exam: Present: alert, oriented X3 Psychiatric exam: Present: normal affect, normal mood Skin exam: Present: warm, dry, intact, normal color. Absent: rash Course Vital Signs 12/14/24 23:53 Temperature 98.2 F Pulse Rate 68 Respiratory 18 Rate Blood Pressure 128/80 O2 Sat by Pulse 93 L Oximetry Medical Decision Making - Medical Decision Making Was pt. sent in by a medical professional or institution (, PA, DESOLDERER, urgent care, hospital, or residential...) When possible be specific @ -[No] Did you speak to anyone other than the patient for history (EMS, parent, family, police, friend...)? What history was obtained from this source @ -[No] Did you review nursing and triage notes (agree or disagree)? Why? @ -[I reviewed and agree with nursing and triage notes] Were old charts reviewed (outside hosp., previous admission, EMS record, old EKG, old radiological studies, urgent care reports/EKG's, residential records)? Report findings @ -[No old charts were reviewed] Differential Diagnosis (chest pain, altered mental status, abdominal pain women, abdominal pain men, vaginal bleeding, weakness, fever, dyspnea, syncope, headache, dizziness, GI bleed, back pain, seizure, CVA, palpatations, mental health, musculoskeletal)? @ -Differential Musculoskeletal Muscular strain, contusion, ligament sprain, fracture, arthritis, septic arthritis, bursitis, cellulitis, muscle spasm, nerve compression, DVT, arterial occlusion, herpes zoster, electrolyte abnormality, tumor.... This is not meant to be in all inclusive list EKG interpreted by me (3pts min.). @ -[As above] X-rays interpreted by me (1pt min.). @ -[None done] CT interpreted by me (1pt min.). @ -[None done] U/S interpreted by me (1pt. min.). @ -[None done] What testing was considered but not performed or refused? (CT, X-rays, U/S, l abs)? Why? @ -[None] What meds were considered but not given or refused? Why? @ -[None] Did you discuss the management of the patient with other professionals (professionals i.e. , PA, DESOLDERER, lab, RT, psych nurse, administrator social welfare, nuclear station operator, teacher, electronic intelligence officer, case technician)? Give summary @ -[No] Was smoking cessation discussed for >3mins.? @ -[No] Was critical care preformed (if so, how long)? @ -[No] Were there social determinants of health that impacted care today? How? (Homelessness, low income, unemployed, alcoholism, drug addiction, transportation, low edu. Level, literacy, decrease access to med. care, fci, rehab)? @ -[No] Was there de-escalation of care discussed even if they declined (Discuss DNR or withdrawal of care, Hospice)? DNR status @ -[No] What co-morbidities impacted this encounter? (DM, HTN, Smoking, COPD, CAD, Cancer, CVA, ARF, Chemo, Hep., AIDS, mental health diagnosis, sleep apnea, morbid obesity)? @ -[None] Was patient admitted / discharged? Hospital course, mention meds given and route, prescriptions, significant lab abnormalities, going to OR and other pertinent info. @ -[hospital course] Undiagnosed new problem with uncertain prognosis? @ -[No] Drug Therapy requiring intensive monitoring for toxicity (Heparin, Nitro, Insulin, Cardizem)? @ -[No] Were any procedures done? @ -[No] Diagnosis/symptom? @ -[default] Acute, or Chronic, or Acute on Chronic? @ -[default] Uncomplicated (without systemic symptoms) or Complicated (systemic symptoms)? @ -[default] Side effects of treatment? @ -[No] Exacerbation, Progression, or Severe Exacerbation? @ -[No] Poses a threat to life or bodily function? How? (Chest pain, [place], [place], pneumonia, PE, COPD, DKA, ARF, appy, cholecystitis, CVA, Diverticulitis, Homicidal, Suicidal, threat to staff... and all critical care pts) @ -[No] Disposition Clinical Impression: Ankle sprain Disposition: HOME SELF-CARE Condition: Stable Instructions (If sedation given, give patient instructions): Ankle Sprain (ED) Additional Instructions: Please follow-up with your doctor. Return to the emergency department for new or worsening symptoms. Is patient prescribed a controlled substance at d/c from ED?: No Referrals: None,Stated [Primary Care Provider] - 1-2 days
--- NOTE | 2024-12-15 03:21 | XR ---
EXAM: XR Right Ankle Complete, 3 or More Views CLINICAL HISTORY: ITS.REASON XR Reason: R ankle injury TECHNIQUE: Frontal, lateral and oblique views of the right ankle. COMPARISON: No relevant prior studies available. FINDINGS: Bones/joints: Tibiotalar joint effusion. Diffuse osseous demineralization. No acute fracture of dislocation. Soft tissues: Unremarkable. Vasculature: Vascular calcifications. IMPRESSION: 1. No acute fracture of dislocation. 2. Tibiotalar joint effusion.
[2024-12-15 03:31] VITALS: BP 121/75; PULSE 87; TEMP 98.1
== END 2024-12-15 03:31 | disposition home or self-care (01) ==
LOC: EC 23:41
DX: S93.401A Sprain of unspecified ligament of right ankle, initial encounter (principal); Z88.5 Allergy status to narcotic agent; Z87.891 Personal history of nicotine dependence; X50.1XXA Overexertion from prolonged static or awkward postures, initial encounter
CPT/HCPCS: 73610; 99283; 29515; L4350